=== PATIENT | female | born 1990 | race Two or more races ===

== ENCOUNTER 2017-03-12 18:55 | Emergency (ER) | payer OTHER ==
[~2017-03-12] VITALS: Ht 167.6 cm; Wt 51.7 kg
[2017-03-12 19:04] VITALS: BP 117/86
== END 2017-03-12 19:39 | disposition home or self-care (01) ==
LOC: ER 18:59
DX: J06.9 Acute upper respiratory infection, unspecified (principal); F41.9 Anxiety disorder, unspecified
CPT/HCPCS: 99282; A4606; Z7610

== ENCOUNTER 2017-12-30 12:47 | Emergency (ER) | payer MEDICAID, OTHER ==
[~2017-12-30] VITALS: Ht 167.6 cm; Wt 51.7 kg
--- NOTE | 2017-12-30 14:25 | NUR ---
PT PRESENTED TO THE ER WITH A C/O NAUSEA. PT STATED THAT SHE WAS AT THE DOCTOR YESTERDAY AND SAID THE BLOOD WORK AND URINE TESTS WERE NEGATIVE. PT STATED THAT SHE HAS NOT BEEN ABLE TO EAT (ONLY CRACKERS AND BANANAS) AND HAS BEEN ABLE TO DRINK WATER. PT DENIES VOMITTING. RESP EVEN AND UNLABORED.
--- NOTE | 2017-12-30 14:28 | NUR ---
B SUZY, PAC IS AT THE BEDSIDE
[2017-12-30 14:44] LABS: BASOPHILS # (AUTO) 0.2 /CMM (0.0-0.2); BASOPHILS % (AUTO) 1.1 % (0.0-2.0); EOSINOPHILS % (AUTO) 0.1 % (0.0-6.0); HEMATOCRIT 48 % (33-45); HEMOGLOBIN 16.2 g/dL (11.5-14.8); LYMPHOCYTES # (AUTO) 0.8 /CMM (0.8-4.8); LYMPHOCYTES % (AUTO) 5.7 % (20.0-44.0); MEAN CORPUSCULAR HEMOGLOBIN 28 PG (26.0-33.0); MEAN CORPUSCULAR HGB CONC 34 g/dl (31.0-36.0); MEAN CORPUSCULAR VOLUME 82 fL (82-100); MONOCYTES # (AUTO) 0.3 /CMM (0.1-1.30); MONOCYTES % (AUTO) 2.5 % (2.0-12.0); NEUTROPHILS # (AUTO) 12.5 /CMM (1.8-8.9); NEUTROPHILS % (AUTO) 90.6 % (43.0-81.0); PLATELET COUNT (AUTO) 293 /CMM (150-450); RDW COEFFICIENT OF VARIATION 12.7 (11.5-15.0); RED BLOOD CELL COUNT(AUTO) 5.85 MIL/uL (4.0-5.2); WHITE BLOOD COUNT (AUTO) 13.8 K/uL (4.3-11.0)
[2017-12-30] MEDS ORDERED: ONDANSETRON 4 MG TAB.RAPDIS ONE (14:44)
[2017-12-30 14:47] LABS: CALCIUM, SERUM 9.3 mg/dL (8.5-10.1); CREATININE 0.8 mg/dL (0.6-1.3); POTASSIUM 3.7 mmol/L (3.5-5.1)
[2017-12-30 14:49] LABS: INR 0.95 (0.85-1.15)
[2017-12-30 14:52] LABS: ALBUMIN 4.6 g/dL (3.4-5.0); BILIRUBIN,DIRECT 0.2 mg/dL (0.0-0.2); BILIRUBIN,TOTAL 2.4 mg/dL (0.2-1.0); TOTAL PROTEIN, SERUM 9.8 g/dL (6.4-8.2)
[2017-12-30] MEDS ORDERED: ONDANSETRON 4 MG TAB.RAPDIS SL ONE (15:00)
[2017-12-30] MEDS ORDERED: IV NS 0.9% 1,000 ML BAG IV ONE (15:00)
--- NOTE | 2017-12-30 15:03 | NUR ---
URINE SAMPLE OBTAINED.
[2017-12-30 15:20] LABS: APPEARANCE,URINE Clear (CLEAR); BILIRUBIN,URINE Negative (NEGATIVE); BLOOD, URINE Small Ery/uL (NEGATIVE); COLOR,URINE Yellow (YELLOW); KETONES,URINE 15 (NEGATIVE); LEUKOCYTE ESTERASE ,URINE Negative (NEGATIVE); NITRITE, URINE Negative (NEGATIVE); PH,URINE 7.5 (5.0-8.0); PROTEIN,URINE Negative (NEGATIVE); UGLUCOSE Negative (NEGATIVE); UROBILINOGEN,URINE 0.2 EU/dL (0.2)
--- NOTE | 2017-12-30 15:20 | NUR ---
PT REC'D ICE CHIPS. PT IS TOLERATING PO WELL.
[2017-12-30 15:34] LABS: BACTERIA,URINE Rare /HPF (None Seen); SQUAMOUS EPITHELIAL CELL,UR Few /HPF (None Seen); WBC,URINE 0-3 /HPF (0-3)
--- NOTE | 2017-12-30 17:58 | NUR ---
IV removed. Catheter intact and site benign. Pressure and 4x4 applied to site. No bleeding noted.
--- NOTE | 2017-12-30 18:03 | NUR ---
Patient discharged to home in stable condition. Written and verbal after care instructions given. Patient verbalizes understanding of instruction AND RX. PT AMBULATED TO THE BATHROOM AND THEN AMBULATED OUT WITH A STEADY GAIT. NAD NOTED. VSS. PT REC'D A COPY OF ALL LABS AND PT'S IS AT THE BEDSIDE DRIVING PT HOME.
[2017-12-30 18:15] VITALS: BP 120/85
== END 2017-12-30 18:16 | disposition home or self-care (01) ==
LOC: ER 12:53
DX: R11.0 Nausea (principal); F41.9 Anxiety disorder, unspecified
CPT/HCPCS: 36415; 76705-TC; 80048-TC; 80076-TC; 81000-TC; 82962-TC; 84703-TC; 85025-TC; 85730-TC; A4606; J7030; Q0162; Z7610

== ENCOUNTER 2018-01-02 20:53 | Emergency (ER) | payer MEDICAID ==
[~2018-01-02] VITALS: Ht 167.6 cm; Wt 51.7 kg
[2018-01-02 21:00] VITALS: BP 139/98
--- NOTE | 2018-01-02 23:20 | NUR ---
DR. MARTIN AT BEDSIDE FOR EVAL.
[2018-01-02] MEDS ORDERED: ONDANSETRON 4 MG TAB.RAPDIS SL ONE (23:30)
[2018-01-02] MEDS ORDERED: ONDANSETRON 4 MG TAB.RAPDIS ONE (23:31)
== END 2018-01-02 23:39 | disposition home or self-care (01) ==
LOC: ER 20:56
DX: J06.9 Acute upper respiratory infection, unspecified (principal); F41.9 Anxiety disorder, unspecified
CPT/HCPCS: A4606; Q0162; Z7610